=== PATIENT | male | born 1985 | race Caucasian/White ===

== ENCOUNTER 2020-03-25 10:52 | Emergency (ER) | payer BC, MEDICAID ==
[2020-03-25 10:59] VITALS: BP 145/85
[2020-03-25] MEDS ORDERED: KETOROLAC TROMETHAMINE 60 MG/2 ML SDV IM ONE (12:21)
--- NOTE | 2020-03-25 12:26 | ER Document Report ---
ED Extremity Problem, Lower - General Chief Complaint: Foot Pain Stated Complaint: FOOT PAIN Time Seen by Provider: 03/25/20 12:18 TRAVEL OUTSIDE OF THE [place] IN LAST 30 DAYS: No - HPI Patient complains to provider of: Injury, Pain, Swelling Location: Foot Occurred: Other - Sunday around 2 PM Where: Home, Outdoors Onset/Duration: Gradual, Worse Quality of pain: Sharp, Stabbing - Related Data Allergies/Adverse Reactions: acetaminophen [From Tylenol-Codeine] Allergy (Verified 08/03/12 18:26) codeine phosphate [From Tylenol-Codeine] Allergy (Verified 08/03/12 18:26) erythromycin base [Erythromycin Base] Allergy (Verified 08/03/12 18:26) Past Medical History - Social History Family History: Reviewed & Not Pertinent - Immunizations Hx Diphtheria, Pertussis, Tetanus Vaccination: Yes Physical Exam - Vital signs Vitals: Temp Pulse Resp BP Pulse Ox 97.8 F 88 16 145/85 H 100 03/25/20 10:58 03/25/20 10:58 03/25/20 10:58 03/25/20 10:58 03/25/20 10:58 Course - Vital Signs Vital signs: Temp Pulse Resp BP Pulse Ox 97.8 F 88 16 145/85 H 100 03/25/20 10:58 03/25/20 10:58 03/25/20 10:58 03/25/20 10:58 03/25/20 10:58
--- NOTE | 2020-03-25 12:28 | ER Document Report ---
ED Medical Screen (RME) - General Chief Complaint: Puncture Wound to Foot Stated Complaint: FOOT PAIN Time Seen by Provider: 03/25/20 12:18 Mode of Arrival: Wheelchair Information source: Patient Notes: 35-year-old male presented to ED for puncture wound to the left lateral heel. He states he is injured himself with a maricel nail while wearing his dog seymour. He states he was barefooted and the nail went and about a half to one inch. I did consult with Dr. Whiting he recommended the patient be seen where they could thoroughly examined the foot and cleaned it out. Will treat him with Toradol IM and get x-ray of the foot at this time. He will be seen by another provider. I have greeted and performed a rapid initial assessment of this patient. A comprehensive ED assessment and evaluation of the patient, analysis of test results and completion of medical decision making process will be conducted by an additional ED providers. TRAVEL OUTSIDE OF THE [place] IN LAST 30 DAYS: No - Related Data Allergies/Adverse Reactions: acetaminophen [From Tylenol-Codeine] Allergy (Verified 03/25/20 12:26) codeine phosphate [From Tylenol-Codeine] Allergy (Verified 03/25/20 12:26) erythromycin base [Erythromycin Base] Allergy (Verified 03/25/20 12:26) Past Medical History - Social History Chew tobacco use (# tins/day): No Frequency of alcohol use: None Drug Abuse: None - Immunizations Hx Diphtheria, Pertussis, Tetanus Vaccination: Yes Physical Exam - Vital signs Vitals: Temp Pulse Resp BP Pulse Ox 97.8 F 88 16 145/85 H 100 03/25/20 10:58 03/25/20 10:58 03/25/20 10:58 03/25/20 10:58 03/25/20 10:58 Course - Vital Signs Vital signs: Temp Pulse Resp BP Pulse Ox 97.8 F 88 16 145/85 H 100 03/25/20 10:58 03/25/20 10:58 03/25/20 10:58 03/25/20 10:58 03/25/20 10:58
--- NOTE | 2020-03-25 12:54 | RADIOLOGY REPORT (SQ) ---
EXAM DESCRIPTION: FOOT LEFT COMPLETE IMAGES COMPLETED DATE/TIME: 03/25/2020 12:40 pm REASON FOR STUDY: Puncture wound nail to the heel of his left foot COMPARISON: None. NUMBER OF VIEWS: Three views. TECHNIQUE: AP, lateral and oblique radiographic images acquired of the left foot. LIMITATIONS: None. FINDINGS: MINERALIZATION: Normal. BONES: No acute fracture or dislocation. No worrisome bone lesions. JOINTS: No effusions. SOFT TISSUES: No soft tissue swelling. No foreign body. OTHER: No other significant finding. IMPRESSION: NEGATIVE STUDY OF THE LEFT FOOT. NO RADIOGRAPHIC EVIDENCE OF ACUTE INJURY. TECHNICAL DOCUMENTATION: JOB ID: [id number] 2010 [employer]- All Rights Reserved Reading location - IP/workstation name: [email or web address]
--- NOTE | 2020-03-25 15:22 | ER Document Report ---
ED Wound - General Chief Complaint: Puncture Wound to Foot Stated Complaint: FOOT PAIN Time Seen by Provider: 03/25/20 12:18 Mode of Arrival: Wheelchair Information source: Patient, Relative Notes: Patient is a 35-year-old male comes emergency room complaining of having a gang to the back of his left heel. Patient states that on Sunday he was walking barefoot in [place] and accidentally stepped backwards and onto a nail sticking out of wood. Patient states that the nail went in approximately three quarters of an inch to the back left lateral heel. He states it was very maricel but he was able to pull it off and the entire nail was present. He attempted to keep it clean states they have been using peroxide and antibiotic cream but it started to go faster and get worse over the past 48 hours. They went to a another emergency room yesterday and they state that they x-rayed the ball of his foot and told him there is nothing to do and gave him pain medication and sent him home. Patient states that the wound is actually the heel not in the front toe. So patient and come today because the pain is increasing and she is getting a large amount of a purulent discharge coming out of the puncture area. Patient also states that his last tetanus shot was approximately 9 years ago. Denies any other medical problems currently takes no medication. Patient denies any nausea vomiting or fevers. TRAVEL OUTSIDE OF THE [place] IN LAST 30 DAYS: No - HPI Patient complains to provider of: Puncture wound Onset/Duration: Sudden Quality of pain: Sharp, Throbbing Pain Level: 3 Context: Injury Skin Temperature: Hot Skin Color: Erythema Capillary refill: < 3 seconds Sensations intact: Yes Distal pulses present: Yes Associated Symptoms: None - Related Data Allergies/Adverse Reactions: acetaminophen [From Tylenol-Codeine] Allergy (Verified 03/25/20 12:26) codeine phosphate [From Tylenol-Codeine] Allergy (Verified 03/25/20 12:26) erythromycin base [Erythromycin Base] Allergy (Verified 03/25/20 12:26) Past Medical History - General Information source: Patient - Was a - Social History Smoking Status: Never Smoker Chew tobacco use (# tins/day): No Frequency of alcohol use: None Drug Abuse: None Lives with: Family Family History: Reviewed & Not Pertinent - Immunizations Hx Diphtheria, Pertussis, Tetanus Vaccination: Yes Review of Systems - Review of Systems Constitutional: No symptoms reported EENT: No symptoms reported Cardiovascular: No symptoms reported Respiratory: No symptoms reported Gastrointestinal: No symptoms reported Genitourinary: No symptoms reported Male Genitourinary: No symptoms reported Musculoskeletal: No symptoms reported Skin: See HPI, Other - Erythema with swelling Hematologic/Lymphatic: No symptoms reported Neurological/Psychological: No symptoms reported -: Yes All other systems reviewed and negative Physical Exam - Vital signs Vitals: Temp Pulse Resp BP Pulse Ox 97.8 F 88 16 145/85 H 100 03/25/20 10:58 03/25/20 10:58 03/25/20 10:58 03/25/20 10:58 03/25/20 10:58 Interpretation: Hypertensive - Notes Notes: PHYSICAL EXAMINATION: GENERAL: Well-appearing, well-nourished and in no acute distress. NECK: Normal range of motion, supple without lymphadenopathy LUNGS: Breath sounds clear to auscultation bilaterally and equal. No wheezes rales or rhonchi. HEART: Regular rate and rhythm without murmurs Musculoskeletal: Patient's area concern is left lower lateral heel. Inspection shows there to be a puncture wound at the left lateral heel area. Just to the left side of the Achilles tendon attachment area. Moderate erythema to being about a space about 2 cm across the puncture wound itself is approximately 3 millimeters across. There is mild erythema as stated surrounding that area there is minimal fluctuance but present. Patient has good cap refill in nailbeds of the toes of the left foot as well as good flexion-extension at the ankle. There is no sign of streaking at this time. NEUROLOGICAL: Normal speech, normal gait. Normal sensory, motor exams PSYCH: Normal mood, normal affect. SKIN: Warm, Dry, normal turgor, no rashes or lesions noted. Course - Re-evaluation Re-evalutation: 03/25/20 16:35 I&D was performed on the puncture wound site. See procedure note - Vital Signs Vital signs: Temp Pulse Resp BP Pulse Ox 97.8 F 88 16 145/85 H 100 03/25/20 10:58 03/25/20 10:58 03/25/20 10:58 03/25/20 10:58 03/25/20 10:58 Procedures - Incision and Drainage Left Lateral Ankle Time completed: 16:36 Type: Simple Anesthetic type: 1% Lidocaine mL's of anesthetic: 2 Blade size: 11 I&D procedure: Betadine prep applied, Iodoform packing placed, Sterile dressing applied Incision Method: Incision made by scalpel Amount/type of drainage: 3 mL of a brownish thin liquid Discharge - Discharge Clinical Impression: Abscess of left heel Puncture wound of left heel Qualifiers: Encounter type: initial encounter Qualified Code(s): S91.332A - Puncture wound without foreign body, left foot, initial encounter Condition: Stable Disposition: HOME, SELF-CARE Instructions: Abscess (OM), Antibiotic Ointment Protection ([facility]), Post Incision and Drainage, Soap Cleansing (OM), Tetanus Immunization Given (OM) Additional Instructions: Home and if the packing comes out that is okay. Just continue with the warm soaks soaks with the antibiotic lotion I given you. The goal of the antibiotics to completion. Keep a close eye on this area if it starts to get worse return to ER for reevaluation. This is in a tendon type area that is concerning hopefully the antibiotics will take care of it. Should you have any concerns immediately return to ER for reevaluation. Prescriptions: Doxycycline Hyclate 100 mg PO BID #20 tablet. Referrals: DEVAN WOOTEN JR, DO [ACTIVE PROVISIONAL STAFF] - Follow up as needed
[2020-03-25] MEDS ORDERED: DOXYCYCLINE HYCLATE 100 MG TABLET PO ONE (15:31)
[2020-03-25] MEDS ORDERED: LIDOCAINE 1% INJ-PF (10 MG/ML) 30 ML SDV INJ ONE (15:31)
[2020-03-25] MEDS ORDERED: DIPH/PERTUSS(ACELL)/TETANUS VAC/PF 0.5 ML SYR (>=10YO) IM ONE (15:31)
[2020-03-25 17:51] LABS: ABSOLUTE BASOPHILS # (AUTO) 0.1 10^3/uL (0.0-0.2); ABSOLUTE EOSINOPHILS # (AUTO) 0.4 10^3/uL (0.0-0.6); ABSOLUTE LYMPHOCYTES (AUTO) 1.8 10^3/uL (0.5-4.7); ABSOLUTE MONOCYTES (AUTO) 0.6 10^3/uL (0.1-1.4); ABSOLUTE NEUT (AUTO) 6.6 10^3/uL (1.7-8.2); BASOPHILS % (AUTO) 0.6 % (0-2); EOSINOPHILS % (AUTO) 4.2 % (0-6); HEMATOCRIT 46.2 % (37.9-51.0); HEMOGLOBIN 15.8 g/dL (13.5-17.0); MEAN CORPUSCULAR HEMOGLOBIN 32.5 pg (27.0-33.4); MEAN CORPUSCULAR HGB CONC 34.2 g/dL (32.0-36.0); MEAN CORPUSCULAR VOLUME 95 fl (80-97); PLATELET COUNT 219 10^3/uL (150-450); RED BLOOD COUNT 4.86 10^6/uL (4.35-5.55); RED CELL DISTRIBUTION WIDTH 13.1 % (11.5-14.0); SEGMENTED NEUTROPHILS % (AUTO) 70.2 % (42-78); TOTAL CELLS COUNTED % (AUTO) 100 %; WHITE BLOOD COUNT 9.4 10^3/uL (4.0-10.5)
[2020-03-25 18:07] LABS: ALBUMIN 4.8 g/dL (3.5-5.0); ALKALINE PHOSPHATASE 100 U/L (38-126); ANION GAP 11 (5-19); ASPARTATE AMINO TRANSFERASE 43 U/L (17-59); BILIRUBIN,DIRECT 0.1 mg/dL (0.0-0.4); BILIRUBIN,TOTAL 0.4 mg/dL (0.2-1.3); BLOOD UREA NITROGEN 16 mg/dL (7-20); CALCIUM 9.5 mg/dL (8.4-10.2); CARBON DIOXIDE 27 mmol/L (22-30); CHLORIDE 104 mmol/L (98-107); GLUCOSE 99 mg/dL (75-110); POTASSIUM 4.7 mmol/L (3.6-5.0); TOTAL PROTEIN 7.9 g/dL (6.3-8.2)
--- OUTSIDE RECORDS SUMMARY | 2020-03-26 15:43 | XMS REPORT ---
:1985 Author Organization [facility] Address [facility] [place] [address] [place] [id number] Care Team Providers Name Role Phone Unavailable Unavailable Unavailable Allergies, Adverse Reactions, Alerts Allergy Allergy Status Severity Reaction(s) Onset Inactive Treating C omments Name Type Date Date Clinician CODEINE Drug Inactive MO nausea allergy (moderate) 01-29 00:00: 00 ERYTHROMYCI Drug Active Moderate hives 2016- N BASE allergy (moderate) 01-29 00:00: 00 CODEINE Drug Active Moderate nausea 2016-0 allergy (moderate) 01-29 00:00: 00 Azithromyci Allergy to Active Severe Hives n substance Codeine Allergy to Active Severe Vomiting substance Medications This patient has no known medications. Problems Condition Condition Condition Status Onset Resolution Last Treatin g Comments Name Details Category Date Date Treatment Clinician Date Low back Low Back Problem Active pain Pain 4-15 00:00: 00 Pain in Pain in Problem Active right knee Right Knee 4-15 00:00: 00 Procedures Procedure Date / Time Performed Performing Clinician Luis Alberto phelan medial branch block, lumbar (PROC) 2019-01-08 00:00:00 medial branch block, lumbar (PROC) 2018-12-02 00:00:00 Arm Surgery [place] Teeth Extraction Results This patient has no known results. Assessments Condition Name Status Diagnosis Date Treating Clinici an Chronic pain syndrome Active 2019-01-08 13:40:29 Lumbar radiculopathy Active 2019-01-08 13:40:29 Low back pain Active 2019-01-08 13:40:29 Medication monitoring Active 2019-01-08 13:40:29 Lumbosacral spondylosis without Active 2019-01-08 13:40 :29 myelopathy Chronic pain syndrome Active 2018-12-30 13:54:50 Lumbar radiculopathy Active 2018-12-30 13:54:50 Low back pain Active 2018-12-30 13:54:50 Medication monitoring Active 2018-12-30 13:54:50 Lumbosacral spondylosis without Active 2018-12-30 13:54 :50 myelopathy Chronic pain syndrome Active 2018-12-13 10:14:05 Lumbar radiculopathy Active 2018-12-13 10:14:05 Low back pain Active 2018-12-13 10:14:05 Medication monitoring Active 2018-12-13 10:14:05 Lumbosacral spondylosis without Active 2018-12-13 10:14 :05 myelopathy Chronic pain syndrome Active 2018-12-02 10:19:24 Lumbar radiculopathy Active 2018-12-02 10:19:24 Low back pain Active 2018-12-02 10:19:24 Medication monitoring Active 2018-12-02 10:00:52 Lumbosacral spondylosis without Active 2018-12-02 10:28 :37 myelopathy Low back pain Active 2018-11-12 13:56:28 Arthropathy of lumbar facet joint Active 2018-11-12 14: 12:15 Sacroiliac joint pain Active 2018-11-12 14:12:40 Lumbosacral spondylosis without Active 2018-11-12 14:12 :52 myelopathy Pain in right knee Active 2018-10-16 09:43:13 Arthropathy of lumbar facet joint Active 2018-10-16 09: 55:46 Sacroiliac disorder Active 2018-10-16 09:55:51 Lumbosacral spondylosis without Active 2018-10-16 09:55 :57 myelopathy Chondromalacia of right patella Active 2018-10-16 09:56 :13 Arthropathy of lumbar facet joint Active 2018-09-04 09: 22:44 Sacroiliac disorder Active 2018-09-04 09:22:47 Lumbosacral spondylosis without Active 2018-09-04 09:22 :53 myelopathy Pain in right knee Active 2018-08-27 08:41:20 Chondromalacia of right patella Active 2018-08-27 09:03 :29 Patellar tendonitis Active 2018-08-27 09:08:09 Terese Schlatter disease Active 2018-08-27 09:13:29 Encounters Start End Encounter Admission Attending Care Care Encounter Date/Time Date/Time Type Type Clinicians Facility Department ID 2019-01-08 2019-01-08 Mu Valdez [id number] 00:00:00 00:00:00 MD Grupo: Surgical Surgical [id number] [address] [employer] [facility], [address], [place] [address] , Ph. 2018-12-30 2018-12-30 Mu Valdez [id number] 00:00:00 00:00:00 MD Grupo: [facility] [id number] [address] [employer] [facility], [address], [place] [address] , Ph. 2018-12-13 2018-12-13 Mu Aguilat [id number] 00:00:00 00:00:00 MD Grupo: [facility] [id number] [address] [facility] [employer] [facility], [address], [place] [address] , Ph. 2018-12-02 2018-12-02 Mu Aguilat [id number] 00:00:00 00:00:00 MD Grupo: [facility] [id number] [facility], [address], [place] [address] , Ph. 2018-11-12 2018-11-12 Jefferson Aguilat [id number] 00:00:00 00:00:00 Adan, Surgical Surgical [id number] DO: [address], [place] [address] , Ph. 2018-10-16 2018-10-16 Jefferson Gilmoreeret [id number] 00:00:00 00:00:00 Adan, Surgical Surgical [id number] DO: [address] [facility], [address], [place] [address] , Ph. 2018-09-04 2018-09-04 Jefferson Aguilat [id number] 00:00:00 00:00:00 Adan, Surgical Surgical [id number] DO: [address] [employer] [facility], [address], [place] [address] , Ph. 2018-08-27 2018-08-27 Jefferson Valdez [id number] 01 00:00:00 00:00:00 Adan, Surgical Surgical [id number] DO: [address] [facility] [employer] [facility], [address], [place] [address] , Ph. Social History Smoking Status Start Date Stop Date Never Smoker Vital Signs Vital Name Observation Time Observation Value Comments BP Diastolic 2019-01-08 00:00:00 93 mm[Hg] Height 2019-01-08 00:00:00 72 [in_i] BP Systolic 2019-01-08 00:00:00 132 mm[Hg] BP Diastolic 2018-12-30 00:00:00 97 mm[Hg] Height 2018-12-30 00:00:00 72 [in_i] BP Systolic 2018-12-30 00:00:00 163 mm[Hg] Height 2018-12-13 00:00:00 72 [in_i] BP Diastolic 2018-12-02 00:00:00 80 mm[Hg] Height 2018-12-02 00:00:00 72 [in_i] BP Systolic 2018-12-02 00:00:00 125 mm[Hg] BP Diastolic 2018-11-12 00:00:00 92 mm[Hg] Height 2018-11-12 00:00:00 72 [in_i] BMI (Body Mass Index) 2018-11-12 00:00:00 32.5 kg/m2 BP Systolic 2018-11-12 00:00:00 124 mm[Hg] Body Weight 2018-11-12 00:00:00 240 [lb_av] Height 2018-10-16 00:00:00 72 [in_i] BMI (Body Mass Index) 2018-10-16 00:00:00 32.5 kg/m2 Body Weight 2018-10-16 00:00:00 240 [lb_av] BP Diastolic 2018-09-04 00:00:00 87 mm[Hg] Height 2018-09-04 00:00:00 72 [in_i] BMI (Body Mass Index) 2018-09-04 00:00:00 32.5 kg/m2 BP Systolic 2018-09-04 00:00:00 151 mm[Hg] Body Weight 2018-09-04 00:00:00 240 [lb_av] Height 2018-08-27 00:00:00 72 [in_i] BMI (Body Mass Index) 2018-08-27 00:00:00 32.5 kg/m2 Body Weight 2018-08-27 00:00:00 240 [lb_av] Hospital Discharge Instructions 1. Pain in right knee 2. Arthropathy of lumbar facet joint 3. Sacroiliac disorder 4. Lumbosacral spondylosis without myelopathy 5. Chondromalacia of right patella Discussion Note: None recorded. Patient educational handouts: No information available.1. Pain in right knee 2. Chondromalacia of right patella Pain Cream [facility] 3. Patellar tendonitis 4. [place] Schlatter disease Discussion Note: None recorded. Patient educational handouts: No information available.
== END 2020-03-25 19:21 | disposition home or self-care (01) ==
LOC: ER 10:52
DX: S91.332A Puncture wound without foreign body, left foot, initial encounter (principal); L02.612 Cutaneous abscess of left foot; W45.0XXA Nail entering through skin, initial encounter; Y93.9 Activity, unspecified; Y92.007 Garden or yard of unspecified non-institutional (private) residence as the place of occurrence of the external cause; Z88.6 Allergy status to analgesic agent; Z88.3 Allergy status to other anti-infective agents; Z23 Encounter for immunization
CPT/HCPCS: 99284; 96372; 90471; 36415; 87070; 87205; 85025; 80053; 73630; 90715; 10060; J3490 ×2; J1885